=== PATIENT | female | born 1995 | race Caucasian/White ===

== ENCOUNTER 2021-01-05 21:03 | Emergency (ER) | payer MEDICAID ==
[~2021-01-05] VITALS: Ht 154.9 cm; Wt 62.6 kg
[2021-01-05 21:14] VITALS: BP 133/79; Ht 154.9 cm; Wt 62.6 kg
== END 2021-01-05 21:53 | disposition home or self-care (01) ==
LOC: ED 21:03
DX: J34.89 Other specified disorders of nose and nasal sinuses (principal); Z98.890 Other specified postprocedural states